=== PATIENT | male | born 1940 | race Caucasian/White ===

== ENCOUNTER 2019-06-18 11:46 | Outpatient (CLI) | payer MEDICARE ==
[2019-06-18 13:05] LABS: Mean Corpuscular HGB CONC 34.1 g/dL (32.0-36.0); Mean Corpuscular Hemoglobin 37.4 pg (27.0-31.0); Mean Platelet Volume 7.3 fL (7.4-10.4); Platelet Count 160 thou/uL (130-400); RBC Distribution Width 12.5 % (11.5-14.5); White Blood Cell (WBC) Count 4.3 thou/uL (4.8-10.8)
[2019-06-18 13:07] LABS: Bacteria/HPF None Seen HPF (None Seen); Bilirubin Negative (Negative); Blood, Urine Negative (Negative); Clarity Clear (Clear); Glucose, Urine (Dipstick) Normal (Negative); Leukocyte Negative Leu/uL (Negative); Nitrite Negative (Negative); Protein, Urine (Dipstick) Negative (Neg-Trace); RBC/HPF 0-3 HPF (0-3); Squamous Epithelial 0-3 HPF (0-3); Urobilinogen Normal mg/dL (Less than 2); WBC/HPF 0-3 HPF (0-3)
[2019-06-18 13:33] LABS: Anion Gap 10 mmol/L (10-20); BUN (Urea Nitrogen) 23 mg/dL (8.4-25.7); Calc. Creatinine Clearance 0 mL/min (70-130); Calcium 9.5 mg/dL (7.8-10.44); Carbon Dioxide 28 mmol/L (23-31); Chloride 105 mmol/L (98-107); Estimated GFR-MDRD 51; Glucose 105 mg/dL (83-110); Potassium 4.3 mmol/L (3.5-5.1); Sodium 139 mmol/L (136-145)
--- NOTE | 2019-06-20 13:39 | EKG ---
Test Reason : Blood Pressure : / mmHG Vent. Rate : 069 BPM Atrial Rate : 069 BPM P-R Int : 162 ms QRS Dur : 088 ms QT Int : 388 ms P-R-T Axes : 056 -15 -07 degrees QTc Int : 415 ms Normal sinus rhythm Minimal voltage criteria for LVH, may be normal variant Borderline ECG When compared with ECG of 08-SEP-2015 13:19, T wave inversion now evident in Inferior leads Confirmed by BEKA BOOKER ([id number]) on 06/20/2019 1:39:04 PM Referred By: EVA Confirmed By:BEKA BOOKER
== END 2019-06-18 11:47 | disposition home or self-care (01) ==
LOC: LABBT 11:46
PROVIDERS: ATTEND Urology
DX: Z01.818 Encounter for other preprocedural examination (principal); N40.1 Benign prostatic hyperplasia with lower urinary tract symptoms
CPT/HCPCS: 80048; 81001; 85027; 87086; 93005; 93010

== ENCOUNTER 2019-06-26 05:53 | Day surgery (SDC) | payer MEDICARE ==
[2019-06-18 11:51] VITALS: BMI 26.4
[2019-06-26] MEDS ORDERED: Levofloxacin 500 mg/D5W 100 ml Premix Bag ONE (06:33)
[2019-06-26] MEDS ORDERED: Midazolam HCl 2 mg/2 ml Vial ONE (06:59)
[2019-06-26] MEDS ORDERED: Fentanyl 100 MCG/2 ML VIAL ONE (06:59)
[2019-06-26] MEDS ORDERED: PROPOFOL 40 ML ONE (07:00)
[2019-06-26] MEDS ORDERED: Ketorolac Tromethamine 30 MG/ML VIAL ONE (08:05)
[2019-06-26] MEDS ORDERED: Oxybutynin 5 MG TAB ONE (08:05)
[2019-06-26] MEDS ORDERED: Phenazopyridine HCl 97.5 MG TABLET ONE (08:05)
[2019-06-26] MEDS ORDERED: PROPOFOL 200 MG/20 ML VIAL ONE (11:36)
--- NOTE | 2019-06-26 13:57 | OP ---
DATE OF PROCEDURE: 06/26/2019 PREOPERATIVE DIAGNOSIS: Enlarged prostate with lower urinary tract symptoms. POSTOPERATIVE DIAGNOSIS: Enlarged prostate with lower urinary tract symptoms. PROCEDURE: UroLift implant. ANESTHESIA: General. COMPLICATIONS: None. BLOOD LOSS: 20 mL. CRITERIA MET:. No active UTI. Conservative management failed and surgical intervention is indicated. IPSS 21/4. Prostate volume, 60 mL. DESCRIPTION OF PROCEDURE: After informed consent, the patient was taken to the operating room, transferred to the table under his own power. Anesthesia was established. A time-out was performed showing the correct patient, site, and procedure. Preoperative antibiotics were administered. He was prepped and draped in the lithotomy position. A 20-[place] cystoscope was inserted into the bladder. The cystostomy bridge was replaced with the UroLift delivery device. The first treatment site was the patient's left side approximately 2 cm distal to the bladder neck. The distal tip of the delivery device was then angled laterally approximately 20 degrees of this position to compress the lateral lobe. The trigger was pulled, thereby deploying a needle containing the implant through the prostate. The needle was retracted, allowing one end of the implant to be delivered to the capsular surface of the prostate. The implant was then tensioned to assure capsular seating and removal of slack monofilament. The device was then angled back toward midline and slowly advanced proximally about 3 to 4 mm until cystoscopic verification of the monofilament being centered in the delivery bay. The urethral end piece was then affixed to the monofilament thereby tailoring the size of the implant. Excess filament was then severed. The delivery device was then readvanced into the bladder. The delivery device was then replaced with the second implant, which was placed on the right side of the bladder neck. Two additional implants the third and fourth were delivered just proximal to the verumontanum, again one on the right and one on the left side of the prostate following a similar technique. Cystoscopy was then repeated, noting an excellent anterior channel and no active bleeding. At this point, the procedure was complete. Total number of implants used, 4. The patient was awoken from anesthesia, transferred back to his hospital bed, and taken to PACU in stable condition, where he will discharge to home upon recovery. IMPLANT LOCATION SUMMARY: 1. Left proximal prostatic urethra. 2. Right proximal prostatic urethra. 3. Left distal prostatic urethra proximal to the verumontanum. 4. Right distal prostatic urethra proximal to the verumontanum. Job ID: [id number] [facility]
== END 2019-06-26 10:00 | disposition home or self-care (01) ==
LOC: SDC 05:53
PROVIDERS: ATTEND Urology
PROC: 0T7D8DZ Dilation of Urethra with Intraluminal Device, Via Natural or Artificial Opening Endoscopic (ICD-10-PCS; principal; 2019-06-26)
DX: N40.1 Benign prostatic hyperplasia with lower urinary tract symptoms (principal); Z79.899 Other long term (current) drug therapy; Z88.0 Allergy status to penicillin
CPT/HCPCS: C1889; J1885; J1956; J2250; J2704; J3010

== ENCOUNTER 2021-06-08 08:48 | Day surgery (SDC) | payer MEDICARE ==
[2021-06-08 08:57] LABS: Prothrombin Time 13.5 sec (12.0-14.7)
[2021-06-08 11:08] VITALS: BMI 26.5
[2021-06-08] MEDS ORDERED: FLU VACC QS2021-22(65YR UP)/PF 240 MCG/0.7 ML SYRINGE IM ONE (18:00)
== END 2021-06-08 11:40 | disposition home or self-care (01) ==
LOC: CT 08:48
PROVIDERS: ATTEND Internal Medicine Hematology & Oncology
PROC: 07DR3ZX Extraction of Iliac Bone Marrow, Percutaneous Approach, Diagnostic (ICD-10-PCS; principal; 2021-06-08)
PROC: 079T3ZX Drainage of Bone Marrow, Percutaneous Approach, Diagnostic (ICD-10-PCS; 2021-06-08)
DX: D61.818 Other pancytopenia (principal); D46.Z Other myelodysplastic syndromes; I10 Essential (primary) hypertension; N40.0 Benign prostatic hyperplasia without lower urinary tract symptoms; E78.00 Pure hypercholesterolemia, unspecified; Z87.891 Personal history of nicotine dependence; Z79.82 Long term (current) use of aspirin; Z79.899 Other long term (current) drug therapy; Z88.0 Allergy status to penicillin
CPT/HCPCS: 20225; 77012; 85610; 85730; 88184; 88237; 88264; 88280

== ENCOUNTER 2023-03-24 13:05 | Outpatient (CLI) | payer MEDICARE ==
[2023-03-24 16:13] LABS: Hemoglobin 10.5 g/dL (13.5-17.5); MDiff Complete? YES; Mean Corpuscular HGB CONC 32.8 g/dL (32.0-36.0); Mean Corpuscular Volume 109.6 fl (81.2-95.1); Mean Platelet Volume 11.1 fl (7.4-10.4); Platelet Count 145 10x3/uL (150-450); RBC Distribution Width 15.7 % (11.5-14.5); Red Blood Cell (RBC) Count 2.92 10x6/uL (4.32-5.72); White Blood Cell (WBC) Count 12.4 10x3/uL (3.5-10.5)
[2023-03-24 16:40] LABS: Anion Gap 17 mmol/L (10-20); BUN (Urea Nitrogen) 15 mg/dL (8.4-25.7); Calc. Creatinine Clearance 0 mL/min (70-130); Calcium 9.1 mg/dL (7.8-10.44); Carbon Dioxide 24 mmol/L (23-31); Chloride 105 mmol/L (98-107); Estimated GFR 86; Glucose 89 mg/dL (83-110); Potassium 3.8 mmol/L (3.5-5.1); Sodium 142 mmol/L (136-145)
[2023-03-24 16:49] LABS: Band 7 % (5-11); Lymphocytes 8 % (21-51); Metamyelocyte 1 % (0-0); Monocytes 2 % (0-10); Neutrophil 82 % (42-75)
[2023-03-24 16:52] LABS: Anisocytosis SLIGHT = 6-15 cells (100X) (0-5/hpf); Macrocytosis MODERATE=16-30 cells (100X) (0-5/hpf)
[2023-03-24 16:53] LABS: Large Platelets SLIGHT (None Seen)
[2023-03-24 16:54] LABS: Platelet Adequacy Comment Appears Decreased
== END 2023-03-24 13:06 | disposition home or self-care (01) ==
LOC: LABBT 13:05
PROVIDERS: ATTEND Orthopaedic Surgery
DX: Z01.818 Encounter for other preprocedural examination (principal); M17.11 Unilateral primary osteoarthritis, right knee
CPT/HCPCS: 80048; 85025; 85610; 87081; 93005; 93010

== ENCOUNTER 2023-03-28 06:24 | Observation (INO) | payer MEDICARE ==
[2023-03-24 13:52] VITALS: BMI 23.0
[2023-03-28] MEDS ORDERED: Sodium Chloride 0.9% 100 ML ONE ×2 (07:15→09:19)
[2023-03-28] MEDS ORDERED: Tranexamic Acid 1,000 MG/10 ML VIAL ONE (07:15)
[2023-03-28] MEDS ORDERED: Vancomycin 1 GM/200 ML (FROZEN) BAG ONE (07:15)
[2023-03-28] MEDS ORDERED: fentaNYL 50 mcg/mL 1 mL Vial ONE ×2 (08:06→13:56)
[2023-03-28] MEDS ORDERED: Bupivacaine PF 0.5% 30 ML VIAL ONE ×2 (08:06→09:19)
[2023-03-28] MEDS ORDERED: Midazolam HCl 2 mg/2 ml Vial ONE (08:06)
[2023-03-28] MEDS ORDERED: fentaNYL 50 mcg/mL 1 mL Vial SLOW IVP PRN (08:44)
[2023-03-28] MEDS ORDERED: traMADol HCl 50 MG TAB PO PRN ×2 (08:45)
[2023-03-28] MEDS ORDERED: Ropivacaine 0.2% 550 ML 550 ML NERVE BLCK SCH (08:45)
[2023-03-28] MEDS ORDERED: Zolpidem Tartrate 5 MG TAB PO PRN ×2 (08:45→09:23)
[2023-03-28] MEDS ORDERED: Ondansetron PF 4 MG/2 ML Vial IVP PRN ×2 (08:45→09:23)
[2023-03-28] MEDS ORDERED: Promethazine HCl 25 MG/ML VIAL IM PRN ×2 (08:45→09:23)
[2023-03-28] MEDS ORDERED: HYDROcodone/Acetaminophen 10/325 mg Tablet PO PRN ×2 (08:45)
[2023-03-28] MEDS ORDERED: fentaNYL PF 100 MCG/2 ML SYRINGE ONE (09:06)
[2023-03-28] MEDS ORDERED: CEFAZOLIN 2 GM VIAL ONE (09:19)
[2023-03-28] MEDS ORDERED: diphenhydrAMINE 25 MG CAP PO PRN (09:23)
[2023-03-28] MEDS ORDERED: Acetaminophen 325 MG TAB PO PRN (09:23)
[2023-03-28] MEDS ORDERED: Propofol 500 MG/50 ML VIAL ONE (09:30)
[2023-03-28] MEDS ORDERED: Ondansetron PF 4 MG/2 ML Vial ONE ×2 (09:41→13:30)
[2023-03-28] MEDS ORDERED: Bupivacaine HCl 0.5%/Epinephrine 1:200,000/PF 30 ml Vial ONE (09:41)
[2023-03-28] MEDS ORDERED: hydrALAZINE 20 MG/ML VIAL ONE (12:38)
[2023-03-28] MEDS ORDERED: Lisinopril 20 MG TAB PO SCH (13:15)
[2023-03-28] MEDS ORDERED: Ketorolac Tromethamine 30 MG/ML VIAL ONE (13:53)
[2023-03-28] MEDS: Ketorolac Tromethamine 30 MG/ML VIAL IVP SCH ×2 (13:53→17:34)
[2023-03-28] MEDS: Sodium Chloride 0.9% 1,000 ML IV SCH ×2 (17:26→18:32)
[2023-03-28] MEDS: CEFAZOLIN 2 GM in Sodium Chloride 0.9% 100 ML IVPB SCH (17:34)
[2023-03-28] MEDS: hydrALAZINE 20 MG/ML VIAL SLOW IVP PRN (19:09)
[2023-03-28] MEDS: Aspirin 81 mg Enteric Coated Tablet PO SCH (21:06)
[2023-03-29] MEDS: Ketorolac Tromethamine 30 MG/ML VIAL IVP SCH ×3 (00:40→11:58)
[2023-03-29] MEDS: CEFAZOLIN 2 GM in Sodium Chloride 0.9% 100 ML IVPB SCH (00:41)
[2023-03-29] MEDS: Sodium Chloride 0.9% 1,000 ML IV SCH (00:42)
[2023-03-29 05:36] LABS: Hematocrit 25.2 % (42.0-52.0); Hemoglobin 8.6 g/dL (14.0-18.0); Mean Corpuscular HGB CONC 34.1 g/dL (32.0-36.0); Mean Corpuscular Hemoglobin 37.4 pg (27.0-31.0); Mean Corpuscular Volume 109.6 fl (78.0-98.0); Mean Platelet Volume 11.9 fL (7.4-10.4); Platelet Count 97 10x3/uL (130-400); White Blood Cell (WBC) Count 9.5 10x3/uL (4.8-10.8)
[2023-03-29] MEDS ORDERED: Ferrous Gluconate 324 MG TAB PO SCH (08:00)
[2023-03-29] MEDS: Aspirin 81 mg Enteric Coated Tablet PO SCH (08:12)
[2023-03-29] MEDS ORDERED: Non-Formulary Item 1 EACH (Multivitamin [Daily Multiple Vitamin] 1 EACH Tablet) PO SCH (09:00)
[2023-03-29] MEDS ORDERED: Cholecalciferol 1,000 UNITS (25 MCG) TAB PO SCH (09:00)
[2023-03-29] MEDS ORDERED: Senokot S 8.6-50 MG TAB PO SCH (09:00)
[2023-03-29] MEDS ORDERED: SENNOSIDES 8.6 MG PO SCH (09:00)
[2023-03-29] MEDS ORDERED: Lisinopril 20 MG TAB PO SCH (09:00)
[2023-03-29] MEDS ORDERED: Multivitamin W/ Minerals 1 TAB PO SCH (09:00)
[2023-03-29] MEDS ORDERED: valACYclovir 500 MG TAB PO SCH (09:00)
[2023-03-29] MEDS ORDERED: Tamsulosin HCl 0.4 MG CAP PO SCH (10:00)
[2023-03-29 12:41] VITALS: TEMP 98.3
[2023-03-29] MEDS: hydrALAZINE 20 MG/ML VIAL SLOW IVP PRN (12:53)
[2023-03-29 14:07] VITALS: BP 147/65
== END 2023-03-29 14:38 | disposition home or self-care (01) ==
LOC: SDC 06:24 → SURG A 17:10
PROVIDERS: ADMIT Orthopaedic Surgery; ATTEND Orthopaedic Surgery
PROC: 0SRC0JZ Replacement of Right Knee Joint with Synthetic Substitute, Open Approach (ICD-10-PCS; principal; 2023-03-28)
DX: M17.11 Unilateral primary osteoarthritis, right knee (principal); I10 Essential (primary) hypertension; E78.5 Hyperlipidemia, unspecified; K21.9 Gastro-esophageal reflux disease without esophagitis; Z87.891 Personal history of nicotine dependence; Z86.16 Personal history of COVID-19; Z88.0 Allergy status to penicillin; Z91.048 Other nonmedicinal substance allergy status; Z79.899 Other long term (current) drug therapy
CPT/HCPCS: 27447; 73560; 85027; 97110 ×2; 97116 ×2; 97530 ×2; A4306; C1776; J0360 ×2; J3010; J3370; 36415; J1885; J2250; J2405; J2704; J2795; J3490; J7050; S0020

== ENCOUNTER 2023-05-19 09:07 | Day surgery (SDC) | payer MEDICARE ==
[~2023-05-19 09:07] MED LIST: Acetaminophen 500 MG TAB PO SCH; diphenhydrAMINE 25 MG CAP PO SCH
[2023-05-19] MEDS ORDERED: diphenhydrAMINE 25 MG CAP ONE (10:29)
[2023-05-19] MEDS ORDERED: Acetaminophen 500 MG TAB ONE (10:29)
[2023-05-19 10:58] VITALS: TEMP 97.6
[2023-05-19] MEDS ORDERED: FLU VACC QS2023(65UP)/MF59C/PF 60 MCG/0.5 ML SYRINGE IM ONE (11:30)
[2023-05-19] MEDS ORDERED: cloNIDine 0.1 MG TAB PO SCH (11:30)
[2023-05-19] MEDS ORDERED: cloNIDine 0.1 MG TAB ONE (11:31)
[2023-05-19 13:37] VITALS: BP 173/71
== END 2023-05-19 14:03 | disposition home or self-care (01) ==
LOC: ONC/OP 09:07
PROVIDERS: ATTEND Internal Medicine Hematology & Oncology
DX: D64.9 Anemia, unspecified (principal); D69.6 Thrombocytopenia, unspecified
CPT/HCPCS: 36430; 86850; 86900; 86901; 86920; P9016

== ENCOUNTER 2023-06-29 10:33 | Day surgery (SDC) | payer MEDICARE ==
[2023-06-29] MEDS ORDERED: diphenhydrAMINE 25 MG CAP PO SCH (11:00)
[2023-06-29] MEDS ORDERED: Acetaminophen 500 MG TAB PO SCH (11:00)
[2023-06-29 15:35] VITALS: TEMP 98.1
[2023-06-29 17:26] VITALS: BP 169/74
== END 2023-06-29 17:27 | disposition home or self-care (01) ==
LOC: ONC/OP 10:33
PROVIDERS: ATTEND Internal Medicine Hematology & Oncology
DX: D64.9 Anemia, unspecified (principal); D69.6 Thrombocytopenia, unspecified
CPT/HCPCS: 36430; 86850; 86900; 86901; 86920; P9016

== ENCOUNTER 2023-07-25 10:05 | Day surgery (SDC) | payer MEDICARE ==
[2023-07-25] MEDS ORDERED: diphenhydrAMINE 25 MG CAP ONE (10:50)
[2023-07-25] MEDS ORDERED: Acetaminophen 500 MG TAB ONE (10:50)
[2023-07-25] MEDS: Acetaminophen 500 MG TAB PO SCH (10:52)
[2023-07-25] MEDS: diphenhydrAMINE 25 MG CAP PO SCH (10:52)
[2023-07-25 13:30] VITALS: TEMP 97.8
[2023-07-25 16:17] VITALS: BP 159/67
== END 2023-07-25 16:27 | disposition home or self-care (01) ==
LOC: ONC/OP 10:05
PROVIDERS: ATTEND Internal Medicine Hematology & Oncology
DX: D64.9 Anemia, unspecified (principal); D69.6 Thrombocytopenia, unspecified
CPT/HCPCS: 36430; 80053; 82248; 83615; 84100; 84550; 86850; 86900; 86901; 86920; P9016; 36415

== ENCOUNTER 2023-08-17 08:58 | Day surgery (SDC) | payer MEDICARE ==
[2023-08-17] MEDS ORDERED: Acetaminophen 500 MG TAB ONE (09:42)
[2023-08-17] MEDS: Acetaminophen 500 MG TAB PO SCH (09:43)
[2023-08-17] MEDS ORDERED: diphenhydrAMINE 25 MG CAP PO SCH (09:45)
[2023-08-17] MEDS ORDERED: cloNIDine 0.1 MG TAB ONE (10:44)
[2023-08-17] MEDS: cloNIDine 0.1 MG TAB PO SCH (10:45)
[2023-08-17 14:49] VITALS: BP 154/70; TEMP 97.9
== END 2023-08-17 14:50 | disposition home or self-care (01) ==
LOC: ONC/OP 08:58
PROVIDERS: ATTEND Internal Medicine Hematology & Oncology
DX: D64.9 Anemia, unspecified (principal)
CPT/HCPCS: 36430; 86850; 86900; 86901; P9016

== ENCOUNTER 2023-11-03 09:00 | Day surgery (SDC) | payer MEDICARE, OTHER ==
[2023-11-03] MEDS ORDERED: diphenhydrAMINE 25 MG CAP PO SCH (09:45)
[2023-11-03] MEDS ORDERED: Acetaminophen 500 MG TAB ONE (09:55)
[2023-11-03] MEDS: Acetaminophen 500 MG TAB PO SCH (09:56)
[2023-11-03 14:59] VITALS: BP 155/63; TEMP 98.1
== END 2023-11-03 15:12 | disposition home or self-care (01) ==
LOC: ONC/OP 09:00
PROVIDERS: ATTEND Internal Medicine Hematology & Oncology
DX: D64.9 Anemia, unspecified (principal); D69.6 Thrombocytopenia, unspecified; Z88.0 Allergy status to penicillin; Z91.048 Other nonmedicinal substance allergy status
CPT/HCPCS: 36430; 86850; 86900; 86901; 86920; P9016

== ENCOUNTER 2023-11-16 09:23 | Day surgery (SDC) | payer MEDICARE ==
[2023-11-16] MEDS ORDERED: diphenhydrAMINE 25 MG CAP PO SCH (09:45)
[2023-11-16] MEDS ORDERED: Acetaminophen 500 MG TAB ONE (10:03)
[2023-11-16] MEDS: Acetaminophen 500 MG TAB PO SCH (10:05)
[2023-11-16 10:53] VITALS: TEMP 97.7
[2023-11-16 13:05] VITALS: BP 149/69
== END 2023-11-16 13:05 | disposition home or self-care (01) ==
LOC: ONC/OP 09:23
PROVIDERS: ATTEND Internal Medicine Hematology & Oncology
DX: D64.9 Anemia, unspecified (principal); D69.6 Thrombocytopenia, unspecified; Z88.0 Allergy status to penicillin; Z91.048 Other nonmedicinal substance allergy status
CPT/HCPCS: 36430; 80048; 86140; 86850; 86900; 86901; 86920; P9016

== ENCOUNTER 2023-11-30 10:29 | Day surgery (SDC) | payer MEDICARE ==
[2023-11-30] MEDS ORDERED: Acetaminophen 500 MG TAB ONE (11:34)
[2023-11-30] MEDS ORDERED: diphenhydrAMINE 25 MG CAP ONE (11:35)
[2023-11-30] MEDS: Acetaminophen 500 MG TAB PO SCH (11:35)
[2023-11-30] MEDS: diphenhydrAMINE 25 MG CAP PO SCH (11:35)
[2023-11-30 14:39] VITALS: BP 146/66; TEMP 97.6
== END 2023-11-30 14:41 | disposition home or self-care (01) ==
LOC: ONC/OP 10:29
PROVIDERS: ATTEND Internal Medicine Hematology & Oncology
DX: D69.6 Thrombocytopenia, unspecified (principal); D64.9 Anemia, unspecified
CPT/HCPCS: 36430; 80048; 86850; 86900; 86901; 86920; G0463; J1642; P9016; 99211

== ENCOUNTER 2023-12-05 10:35 | Day surgery (SDC) | payer MEDICARE ==
[2023-12-05 12:40] VITALS: BP 136/60; TEMP 98.4
== END 2023-12-05 15:00 | disposition home or self-care (01) ==
LOC: ONC/OP 10:35
PROVIDERS: ATTEND Internal Medicine Hematology & Oncology
DX: D64.9 Anemia, unspecified (principal); D69.6 Thrombocytopenia, unspecified; Z91.048 Other nonmedicinal substance allergy status; Z88.0 Allergy status to penicillin
CPT/HCPCS: 36430; 86850; 86900; 86901; 86920; J1642; P9016

== ENCOUNTER 2024-01-27 10:14 | Day surgery (SDC) | payer MEDICARE ==
[2024-01-27] MEDS ORDERED: diphenhydrAMINE 25 MG CAP PO SCH (10:30)
[2024-01-27] MEDS ORDERED: Acetaminophen 500 MG TAB ONE (11:06)
[2024-01-27] MEDS: Acetaminophen 500 MG TAB PO SCH (11:07)
[2024-01-27 16:21] VITALS: BP 145/72; TEMP 98.1
== END 2024-01-27 16:51 | disposition home or self-care (01) ==
LOC: ONC/OP 10:14
PROVIDERS: ATTEND Nurse Practitioner Family
DX: D69.6 Thrombocytopenia, unspecified (principal); Z91.048 Other nonmedicinal substance allergy status; Z88.0 Allergy status to penicillin; C92.00 Acute myeloblastic leukemia, not having achieved remission; D46.Z Other myelodysplastic syndromes
CPT/HCPCS: 36430; 80053; 83735; 85379; 85384; 85610; 86850; 86900; 86901; 86920; P9016; P9035

== ENCOUNTER 2024-02-03 10:14 | Day surgery (SDC) | payer MEDICARE ==
[2024-02-03] MEDS ORDERED: diphenhydrAMINE 25 MG CAP PO SCH (10:45)
[2024-02-03] MEDS ORDERED: Acetaminophen 500 MG TAB ONE (11:07)
[2024-02-03] MEDS: Acetaminophen 500 MG TAB PO SCH (11:08)
[2024-02-03 13:33] VITALS: BP 130/66; TEMP 97.9
== END 2024-02-03 13:55 | disposition home or self-care (01) ==
LOC: ONC/OP 10:14
PROVIDERS: ATTEND Internal Medicine Hematology & Oncology
DX: D64.9 Anemia, unspecified (principal); D69.6 Thrombocytopenia, unspecified
CPT/HCPCS: 36430; 86850; 86900; 86901; 86920; P9016; 80053; 85379; 85384; 85610

== ENCOUNTER 2024-02-22 09:12 | Day surgery (SDC) | payer MEDICARE ==
[2024-02-22] MEDS ORDERED: Acetaminophen 500 MG TAB ONE (10:11)
[2024-02-22] MEDS ORDERED: diphenhydrAMINE 25 MG CAP ONE (10:11)
[2024-02-22] MEDS: diphenhydrAMINE 25 MG CAP PO SCH (10:32)
[2024-02-22] MEDS: Acetaminophen 500 MG TAB PO SCH (10:32)
[2024-02-22 11:53] VITALS: TEMP 98.1
[2024-02-22 12:22] VITALS: BP 147/66
== END 2024-02-22 12:23 | disposition home or self-care (01) ==
LOC: ONC/OP 09:12
PROVIDERS: ATTEND Internal Medicine Hematology & Oncology
DX: D64.9 Anemia, unspecified (principal); D69.6 Thrombocytopenia, unspecified; Z91.040 Latex allergy status; Z88.0 Allergy status to penicillin
CPT/HCPCS: 36430; 86850; 86900; 86901; P9035

== ENCOUNTER 2024-03-16 10:05 | Day surgery (SDC) | payer MEDICARE ==
[2024-03-16] MEDS ORDERED: diphenhydrAMINE 25 MG CAP PO SCH (11:00)
[2024-03-16] MEDS ORDERED: Acetaminophen 500 MG TAB ONE (11:03)
[2024-03-16] MEDS: Acetaminophen 500 MG TAB PO SCH (11:04)
[2024-03-16 11:59] VITALS: BP 154/70; TEMP 98.1
[2024-03-16] MEDS ORDERED: FLU (Fluad Triv) TS24-25 (65UP)/MF59C/PF 45 MCG/0.5 ML Syringe IM ONE (14:00)
== END 2024-03-16 12:03 | disposition home or self-care (01) ==
LOC: ONC/OP 10:05
PROVIDERS: ATTEND Internal Medicine Hematology & Oncology
DX: D64.9 Anemia, unspecified (principal); D69.6 Thrombocytopenia, unspecified; Z91.048 Other nonmedicinal substance allergy status; Z88.0 Allergy status to penicillin
CPT/HCPCS: 36430; 86850; 86900; 86901; P9035

== ENCOUNTER 2024-03-23 09:47 | Day surgery (SDC) | payer MEDICARE ==
[2024-03-23] MEDS ORDERED: diphenhydrAMINE 25 MG CAP ONE (10:56)
[2024-03-23] MEDS ORDERED: Acetaminophen 500 MG TAB ONE (10:56)
[2024-03-23] MEDS: diphenhydrAMINE 25 MG CAP PO SCH (10:57)
[2024-03-23] MEDS: Acetaminophen 500 MG TAB PO SCH (10:57)
[2024-03-23 12:11] VITALS: BP 139/68; TEMP 98.3
== END 2024-03-23 12:12 | disposition home or self-care (01) ==
LOC: ONC/OP 09:47
PROVIDERS: ATTEND Internal Medicine Hematology & Oncology
DX: D64.9 Anemia, unspecified (principal); D69.6 Thrombocytopenia, unspecified; Z88.0 Allergy status to penicillin; Z91.040 Latex allergy status
CPT/HCPCS: 36430; 86850; 86900; 86901; P9035

== ENCOUNTER 2024-03-28 10:28 | Day surgery (SDC) | payer MEDICARE ==
[2024-03-28] MEDS ORDERED: diphenhydrAMINE 25 MG CAP ONE (11:21)
[2024-03-28] MEDS ORDERED: Acetaminophen 500 MG TAB ONE (11:21)
[2024-03-28] MEDS: Acetaminophen 500 MG TAB PO SCH (11:21)
[2024-03-28] MEDS: diphenhydrAMINE 25 MG CAP PO SCH (11:22)
[2024-03-28 12:16] VITALS: BP 145/66; TEMP 97.7
== END 2024-03-28 12:16 | disposition home or self-care (01) ==
LOC: ONC/OP 10:28
PROVIDERS: ATTEND Internal Medicine Hematology & Oncology
DX: D64.9 Anemia, unspecified (principal); D69.6 Thrombocytopenia, unspecified
CPT/HCPCS: 36430; 86850; 86900; 86901; P9035

== ENCOUNTER 2024-04-02 10:54 | Day surgery (SDC) | payer MEDICARE ==
[2024-04-02] MEDS ORDERED: diphenhydrAMINE 25 MG CAP ONE (11:48)
[2024-04-02] MEDS ORDERED: Acetaminophen 500 MG TAB ONE (11:48)
[2024-04-02] MEDS: diphenhydrAMINE 25 MG CAP PO SCH (11:49)
[2024-04-02] MEDS: Acetaminophen 500 MG TAB PO SCH (11:49)
[2024-04-02 13:26] VITALS: BP 168/74; TEMP 98.1
== END 2024-04-02 15:25 | disposition home or self-care (01) ==
LOC: ONC/OP 10:54
PROVIDERS: ATTEND Internal Medicine Hematology & Oncology
DX: D64.9 Anemia, unspecified (principal); D69.6 Thrombocytopenia, unspecified
CPT/HCPCS: 36430; 86850; 86900; 86901; P9035

== ENCOUNTER 2024-04-06 10:56 | Day surgery (SDC) | payer MEDICARE ==
[2024-04-06] MEDS ORDERED: Acetaminophen 500 MG TAB ONE (11:28)
[2024-04-06] MEDS: Acetaminophen 500 MG TAB PO SCH (11:29)
[2024-04-06] MEDS ORDERED: diphenhydrAMINE 25 MG CAP ONE (11:33)
[2024-04-06] MEDS: diphenhydrAMINE 25 MG CAP PO SCH (11:33)
[2024-04-06 13:03] VITALS: TEMP 97.8
[2024-04-06 16:33] VITALS: BP 136/64
== END 2024-04-06 16:01 | disposition home or self-care (01) ==
LOC: ONC/OP 10:56
PROVIDERS: ATTEND Internal Medicine Hematology & Oncology
DX: D64.9 Anemia, unspecified (principal); D69.6 Thrombocytopenia, unspecified; Z91.048 Other nonmedicinal substance allergy status; Z88.0 Allergy status to penicillin
CPT/HCPCS: 36430; 86850; 86900; 86901; 86920; J1642; P9016; P9035

== ENCOUNTER 2024-04-11 10:33 | Day surgery (SDC) | payer MEDICARE ==
[2024-04-11] MEDS ORDERED: diphenhydrAMINE 25 MG CAP ONE (11:43)
[2024-04-11] MEDS ORDERED: Acetaminophen 500 MG TAB ONE (11:43)
[2024-04-11] MEDS: diphenhydrAMINE 25 MG CAP PO SCH (11:44)
[2024-04-11] MEDS: Acetaminophen 500 MG TAB PO SCH (11:44)
[2024-04-11] MEDS ORDERED: FLU (Fluad Triv) TS24-25 (65UP)/MF59C/PF 45 MCG/0.5 ML Syringe IM ONE (14:00)
[2024-04-11 15:08] VITALS: BP 124/61; TEMP 97.7
== END 2024-04-11 15:08 | disposition home or self-care (01) ==
LOC: ONC/OP 10:33
PROVIDERS: ATTEND Internal Medicine Hematology & Oncology
DX: D64.9 Anemia, unspecified (principal); D69.6 Thrombocytopenia, unspecified; Z91.048 Other nonmedicinal substance allergy status; Z88.0 Allergy status to penicillin
CPT/HCPCS: 36430; 86850; 86900; 86901; 86920; P9016; P9035

== ENCOUNTER 2024-04-18 11:12 | Day surgery (SDC) | payer MEDICARE ==
[2024-04-18] MEDS ORDERED: Acetaminophen 500 MG TAB ONE (11:53)
[2024-04-18] MEDS ORDERED: diphenhydrAMINE 25 MG CAP ONE (11:53)
[2024-04-18] MEDS: diphenhydrAMINE 25 MG CAP PO SCH (11:55)
[2024-04-18] MEDS: Acetaminophen 500 MG TAB PO SCH (11:55)
[2024-04-18 16:38] VITALS: TEMP 97.7
[2024-04-18 16:43] VITALS: BP 133/65
== END 2024-04-18 16:41 | disposition home or self-care (01) ==
LOC: ONC/OP 11:12
PROVIDERS: ATTEND Internal Medicine Hematology & Oncology
DX: D64.9 Anemia, unspecified (principal); D69.6 Thrombocytopenia, unspecified; Z91.048 Other nonmedicinal substance allergy status; Z88.0 Allergy status to penicillin
CPT/HCPCS: 36430; 86850; 86900; 86901; 86920; J1642; P9016; P9035

== ENCOUNTER 2024-04-20 09:05 | Emergency (ER) | payer MEDICARE ==
[2024-04-20 09:36] LABS: Bacteria/HPF None Seen HPF (None Seen); CAUTI Indications for Culture Pelvic or flank pain; Squamous Epithelial 0-3 HPF (0-3); WBC/HPF 0-3 HPF (0-3)
[2024-04-20 09:38] LABS: Urine Culture Reflex No No
[2024-04-20 09:44] LABS: Bilirubin Negative (Negative); Blood, Urine 1+ (Negative); Clarity Clear (Clear); Glucose, Urine (Dipstick) Normal (Negative); Ketone, Urine Negative (Negative); Leukocyte Negative Leu/uL (Negative); Nitrite Negative (Negative); Protein, Urine (Dipstick) 10 mg/dL (Neg-Trace); Specific Gravity, Urine 1.014 (1.002-1.036); Urobilinogen Normal mg/dL (Less than 2); pH, Urine 6.5 (5.0-9.0)
[2024-04-20 10:44] LABS: Hematocrit 25.4 % (42.0-52.0); Hemoglobin 8.6 g/dL (14.0-18.0); Mean Corpuscular HGB CONC 33.9 g/dL (32.0-36.0); Mean Corpuscular Hemoglobin 29.1 pg (27.0-31.0); Mean Corpuscular Volume 85.8 fL (78.0-98.0); Mean Platelet Volume 8.8 fL (7.4-10.4); Platelet Count 32 10x3/uL (130-400); RBC Distribution Width 14.4 % (11.5-14.5); Red Blood Cell (RBC) Count 2.96 mill/uL (4.70-6.10)
[2024-04-20 10:49] LABS: Anion Gap 10 mmol/L (10-20); BUN (Urea Nitrogen) 16 mg/dL (8.4-25.7); Calc. Creatinine Clearance 0 mL/min (70-130); Calcium 8.7 mg/dL (7.8-10.44); Carbon Dioxide 23 mmol/L (23-31); Chloride 108 mmol/L (98-107); Estimated GFR 86; Glucose 102 mg/dL (83-110); Lipase 41 U/L (8-78); Potassium 4.2 mmol/L (3.5-5.1); Sodium 137 mmol/L (136-145)
[2024-04-20 11:28] LABS: Band 1 % (5-11); Eosinophils 1 % (0-10); Lymphocytes 29 % (21-51); Neutrophil 2 % (42-75); Platelet Adequacy Comment Significant Decrease; Polychromasia SLIGHT = 2-3 cells HPF (0-2); Reactive Lymphocytes 2 % (0-10)
== END 2024-04-20 11:56 | disposition home or self-care (01) ==
LOC: ERS 09:05
DX: M48.061 Spinal stenosis, lumbar region without neurogenic claudication (principal); N28.1 Cyst of kidney, acquired; I10 Essential (primary) hypertension
CPT/HCPCS: 36415; 74176; 80048; 81001; 83690; 85025

== ENCOUNTER 2024-04-23 09:52 | Day surgery (SDC) | payer MEDICARE ==
[2024-04-23] MEDS ORDERED: Acetaminophen 500 MG TAB ONE (10:30)
[2024-04-23] MEDS ORDERED: diphenhydrAMINE 25 MG CAP PO SCH (10:30)
[2024-04-23] MEDS: Acetaminophen 500 MG TAB PO SCH (10:35)
[2024-04-23 13:21] VITALS: BP 137/65; TEMP 97.7
== END 2024-04-23 13:16 | disposition home or self-care (01) ==
LOC: ONC/OP 09:52
PROVIDERS: ATTEND Internal Medicine Hematology & Oncology
DX: D64.9 Anemia, unspecified (principal); D69.6 Thrombocytopenia, unspecified; Z88.0 Allergy status to penicillin; Z91.048 Other nonmedicinal substance allergy status
CPT/HCPCS: 36430; 86850; 86900; 86901; P9035

== ENCOUNTER 2024-04-25 10:19 | Emergency (ER) | payer MEDICARE ==
[2024-04-25 10:54] LABS: Mean Corpuscular Hemoglobin 28.9 pg (27.0-31.0); Mean Corpuscular Volume 82.6 fL (78.0-98.0); Mean Platelet Volume 10.3 fL (7.4-10.4); Platelet Count 24 10x3/uL (130-400); RBC Distribution Width 14.2 % (11.5-14.5); Red Blood Cell (RBC) Count 2.42 mill/uL (4.70-6.10)
[2024-04-25 11:03] LABS: ALT (SGPT) 19 U/L (8-55); AST (SGOT) 11 U/L (5-34); Albumin 3.2 g/dL (3.4-4.8); Alkaline Phosphatase 78 U/L (40-110); Anion Gap 13 mmol/L (10-20); BUN (Urea Nitrogen) 20 mg/dL (8.4-25.7); Bilirubin, Total 1.1 mg/dL (0.2-1.2); Calc. Creatinine Clearance 0 mL/min (70-130); Calcium 8.6 mg/dL (7.8-10.44); Carbon Dioxide 21 mmol/L (23-31); Chloride 100 mmol/L (98-107); Estimated GFR 72; Globulin 3.4 g/dL (2.4-3.5); Glucose 123 mg/dL (83-110); Potassium 3.9 mmol/L (3.5-5.1); Protein, Total 6.6 g/dL (5.8-8.1); Sodium 130 mmol/L (136-145)
[2024-04-25] MEDS ORDERED: diphenhydrAMINE 25 MG CAP ONE ×2 (11:54→11:57)
[2024-04-25 13:19] LABS: Lymphocytes 25 % (21-51); Monocytes 4 % (0-10); Neutrophil 1 % (42-75); Ovalocytes SLIGHT = 2-5 cells HPF (0-1); Platelet Adequacy Comment Significant Decrease; Polychromasia SLIGHT = 2-3 cells HPF (0-2); Reactive Lymphocytes 1 % (0-10)
== END 2024-04-25 16:38 | disposition home or self-care (01) ==
LOC: ERS 10:19
DX: D61.818 Other pancytopenia (principal); C95.90 Leukemia, unspecified not having achieved remission; I10 Essential (primary) hypertension; E78.5 Hyperlipidemia, unspecified
CPT/HCPCS: 36430; 71045; 80053; 85025; 86850; 86900; 86901; 86920; 93005; P9016; 36415

== ENCOUNTER 2024-04-26 10:25 | Inpatient (IN) | payer MEDICARE, OTHER ==
[2024-04-26 11:19] LABS: Hematocrit 24.8 % (42.0-52.0); Mean Corpuscular HGB CONC 36.3 g/dL (32.0-36.0); Mean Corpuscular Hemoglobin 29.3 pg (27.0-31.0); Mean Corpuscular Volume 80.8 fL (78.0-98.0); Mean Platelet Volume 10.5 fL (7.4-10.4); Platelet Count 13 10x3/uL (130-400); RBC Distribution Width 13.8 % (11.5-14.5); Red Blood Cell (RBC) Count 3.07 mill/uL (4.70-6.10)
[2024-04-26] MEDS ORDERED: Cefepime 2 GM VIAL ONE (11:30)
[2024-04-26] MEDS ORDERED: Sodium Chloride 0.9% 100 ML ONE (11:30)
[2024-04-26 11:33] LABS: ALT (SGPT) 21 U/L (8-55); AST (SGOT) 16 U/L (5-34); Albumin 3.1 g/dL (3.4-4.8); Alkaline Phosphatase 80 U/L (40-110); Anion Gap 13 mmol/L (10-20); BUN (Urea Nitrogen) 20 mg/dL (8.4-25.7); Bilirubin, Total 1.6 mg/dL (0.2-1.2); Calc. Creatinine Clearance 0 mL/min (70-130); Calcium 8.5 mg/dL (7.8-10.44); Carbon Dioxide 20 mmol/L (23-31); Chloride 100 mmol/L (98-107); Estimated GFR 85; Globulin 3.5 g/dL (2.4-3.5); Glucose 124 mg/dL (83-110); Potassium 3.4 mmol/L (3.5-5.1); Protein, Total 6.6 g/dL (5.8-8.1); Sodium 130 mmol/L (136-145)
[2024-04-26] MEDS ORDERED: Iopamidol-370 76% 500 ML MDV (1 ML CHARGE) ONE (11:38)
[2024-04-26 11:43] LABS: Band 1 % (5-11); Burr Cells SLIGHT = 2-5 cells HPF (0-1); Lymphocytes 9 % (21-51); Platelet Adequacy Comment Significant Decrease; Polychromasia SLIGHT = 2-3 cells HPF (0-2); Reactive Lymphocytes 1 % (0-10); Schistocytes SLIGHT = 2-5 cells HPF (0-1); Smudge Cells 4.8 %
[2024-04-26 13:02] LABS: Bacteria/HPF None Seen HPF (None Seen); Bilirubin Negative (Negative); Blood, Urine Trace (Negative); CAUTI Indications for Culture Immunosuppressed; Clarity Clear (Clear); Glucose, Urine (Dipstick) Normal (Negative); Ketone, Urine Negative (Negative); Leukocyte Negative Leu/uL (Negative); Nitrite Negative (Negative); Protein, Urine (Dipstick) 30 mg/dL (Neg-Trace); RBC/HPF 0-3 HPF (0-3); Specific Gravity, Urine 1.015 (1.002-1.036); Squamous Epithelial 0-3 HPF (0-3); Urobilinogen Normal mg/dL (Less than 2); WBC/HPF 0-3 HPF (0-3); pH, Urine 5.5 (5.0-9.0)
[2024-04-26 13:03] LABS: Urine Culture Reflex No No; Urine Culture Reflex Yes Yes
[2024-04-26] MEDS ORDERED: Senokot 8.6 MG TAB PO PRN (14:19)
[2024-04-26 15:36] VITALS: BMI 20.8
[2024-04-26] MEDS: Acetaminophen 325 MG TAB PO PRN (15:54)
[2024-04-26] MEDS: valACYclovir 500 MG TAB PO SCH (15:55)
[2024-04-26] MEDS ORDERED: POSACONAZOLE PO SCH (21:00)
[2024-04-26] MEDS: Cefepime 2 GM in Sodium Chloride 0.9% 100 ML IVPB SCH (21:15)
[2024-04-27] MEDS: HYDROcodone/Acetaminophen 5/325 mg Tablet PO PRN (03:34)
[2024-04-27 05:13] LABS: Hemoglobin 7.9 g/dL (14.0-18.0); Mean Corpuscular HGB CONC 35.9 g/dL (32.0-36.0); Mean Corpuscular Hemoglobin 29.4 pg (27.0-31.0); Mean Corpuscular Volume 81.8 fL (78.0-98.0); Mean Platelet Volume 8.8 fL (7.4-10.4); Platelet Count 38 10x3/uL (130-400); RBC Distribution Width 13.9 % (11.5-14.5); Red Blood Cell (RBC) Count 2.69 mill/uL (4.70-6.10)
[2024-04-27 05:22] LABS: ALT (SGPT) 18 U/L (8-55); AST (SGOT) 18 U/L (5-34); Albumin 2.7 g/dL (3.4-4.8); Alkaline Phosphatase 67 U/L (40-110); Anion Gap 12 mmol/L (10-20); BUN (Urea Nitrogen) 19 mg/dL (8.4-25.7); Bilirubin, Total 1.3 mg/dL (0.2-1.2); Calc. Creatinine Clearance 69 mL/min (70-130); Calcium 8.1 mg/dL (7.8-10.44); Carbon Dioxide 21 mmol/L (23-31); Chloride 101 mmol/L (98-107); Estimated GFR 87; Globulin 3.1 g/dL (2.4-3.5); Glucose 129 mg/dL (83-110); Potassium 2.9 mmol/L (3.5-5.1); Protein, Total 5.8 g/dL (5.8-8.1); Sodium 131 mmol/L (136-145)
[2024-04-27 05:44] LABS: Hypochromia SLIGHT = 6-15 cells HPF (0-5); Lymphocytes 15 % (21-51); Macrocytosis SLIGHT = 6-15 cells HPF (0-5); Neutrophil 1 % (42-75); Platelet Adequacy Comment Platelets Decreased; Polychromasia SLIGHT = 2-3 cells HPF (0-2)
[2024-04-27] MEDS: Cholecalciferol 1,000 UNITS (25 MCG) TAB PO SCH (09:02)
[2024-04-27] MEDS: Tamsulosin HCl 0.4 MG CAP PO SCH (09:02)
[2024-04-27] MEDS: Potassium Chloride 20 MEQ TAB PO SCH ×2 (14:41→20:16)
[2024-04-27] MEDS: Vancomycin (BATCH) 1.75 GM in Premix 1 BAG IVPB SCH (16:16)
[2024-04-27] MEDS: Vancomycin 1 GM in Sodium Chloride 0.9% 250 ML 250 ML IVPB SCH (17:35)
[2024-04-27] MEDS ORDERED: Non-Formulary Item 1 EACH (Posaconazole 100 MG Tab) PO SCH (21:00)
[2024-04-27] MEDS: Vancomycin HCl 750 MG in Sodium Chloride 0.9% 250 ML 250 ML IVPB SCH (23:52)
[2024-04-28 04:58] LABS: Hematocrit 23.7 % (42.0-52.0); Hemoglobin 8.3 g/dL (14.0-18.0); Mean Corpuscular Hemoglobin 28.8 pg (27.0-31.0); Mean Corpuscular Volume 82.3 fL (78.0-98.0); Mean Platelet Volume 9.2 fL (7.4-10.4); Platelet Count 22 10x3/uL (130-400); RBC Distribution Width 13.9 % (11.5-14.5); Red Blood Cell (RBC) Count 2.88 mill/uL (4.70-6.10)
[2024-04-28 05:04] LABS: Vancomycin, Random 18.9 ug/mL (See Comment)
[2024-04-28 05:08] LABS: ALT (SGPT) 17 U/L (8-55); AST (SGOT) 14 U/L (5-34); Albumin 2.6 g/dL (3.4-4.8); Alkaline Phosphatase 70 U/L (40-110); Anion Gap 12 mmol/L (10-20); BUN (Urea Nitrogen) 18 mg/dL (8.4-25.7); Bilirubin, Total 1.4 mg/dL (0.2-1.2); Calc. Creatinine Clearance 80 mL/min (70-130); Carbon Dioxide 20 mmol/L (23-31); Chloride 101 mmol/L (98-107); Estimated GFR 91; Globulin 3.4 g/dL (2.4-3.5); Glucose 135 mg/dL (83-110); Potassium 3.3 mmol/L (3.5-5.1); Sodium 130 mmol/L (136-145)
[2024-04-28 05:29] LABS: Band 1 % (5-11); Blast 1 % (0-0); Hypochromia SLIGHT = 6-15 cells HPF (0-5); Lymphocytes 11 % (21-51); Neutrophil 4 % (42-75); Platelet Adequacy Comment Platelets Decreased; Reactive Lymphocytes 5 % (0-10)
[2024-04-28] MEDS ORDERED: Potassium Chloride 20 MEQ TAB PO SCH (08:00)
[2024-04-28] MEDS: Multivitamin W/ Minerals 1 TAB PO SCH (09:20)
[2024-04-28] MEDS: Pantoprazole DR 40 MG TAB PO SCH (09:20)
[2024-04-28] MEDS: NIFEdipine XL 30 MG ER.TAB PO SCH (09:20)
[2024-04-28] MEDS: Lisinopril 20 MG TAB PO SCH (09:20)
[2024-04-28] MEDS: Potassium Chloride 20 MEQ TAB PO SCH (10:23)
[2024-04-28] MEDS: Vancomycin 1 GM in Premix 1 BAG IVPB SCH (12:44)
[2024-04-28] MEDS: Gentamicin Sulfate 120 MG in Premix 1 BAG IVPB SCH (18:19)
[2024-04-29 04:34] LABS: Hematocrit 22.3 % (42.0-52.0); Hemoglobin 7.9 g/dL (14.0-18.0); Mean Corpuscular HGB CONC 35.4 g/dL (32.0-36.0); Mean Corpuscular Hemoglobin 28.9 pg (27.0-31.0); Mean Corpuscular Volume 81.7 fL (78.0-98.0); Mean Platelet Volume 9.4 fL (7.4-10.4); Platelet Count 16 10x3/uL (130-400); RBC Distribution Width 14.1 % (11.5-14.5); Red Blood Cell (RBC) Count 2.73 mill/uL (4.70-6.10)
[2024-04-29 04:56] LABS: ALT (SGPT) 19 U/L (8-55); AST (SGOT) 16 U/L (5-34); Albumin 2.6 g/dL (3.4-4.8); Alkaline Phosphatase 71 U/L (40-110); Anion Gap 12 mmol/L (10-20); BUN (Urea Nitrogen) 22 mg/dL (8.4-25.7); Bilirubin, Total 1.1 mg/dL (0.2-1.2); Calc. Creatinine Clearance 80 mL/min (70-130); Calcium 8.2 mg/dL (7.8-10.44); Carbon Dioxide 20 mmol/L (23-31); Chloride 100 mmol/L (98-107); Estimated GFR 91; Globulin 3.4 g/dL (2.4-3.5); Glucose 142 mg/dL (83-110); Potassium 3.4 mmol/L (3.5-5.1); Sodium 129 mmol/L (136-145)
[2024-04-29 05:04] LABS: Band 1 % (5-11); Blast 67 % (0-0); Elliptocytes SLIGHT = 2-5 cells HPF (0-1); Lymphocytes 22 % (21-51); Neutrophil 3 % (42-75); Platelet Adequacy Comment Platelets Decreased; Polychromasia SLIGHT = 2-3 cells HPF (0-2); Reactive Lymphocytes 7 % (0-10); Spherocytes MODERATE= 6-15 cells HPF (None Seen)
[2024-04-29 09:41] LABS: Gentamicin, Random 0.7 ug/mL (See Comment)
[2024-04-29 22:42] LABS: Hematocrit 19.7 % (42.0-52.0); Hemoglobin 7.1 g/dL (14.0-18.0); Mean Corpuscular Hemoglobin 29.6 pg (27.0-31.0); Mean Corpuscular Volume 82.1 fL (78.0-98.0); Mean Platelet Volume 9.2 fL (7.4-10.4); Platelet Count 11 10x3/uL (130-400); RBC Distribution Width 14.1 % (11.5-14.5)
[2024-04-29 22:52] LABS: ALT (SGPT) 17 U/L (8-55); AST (SGOT) 15 U/L (5-34); Albumin 2.4 g/dL (3.4-4.8); Alkaline Phosphatase 71 U/L (40-110); Anion Gap 12 mmol/L (10-20); BUN (Urea Nitrogen) 26 mg/dL (8.4-25.7); Bilirubin, Total 1.1 mg/dL (0.2-1.2); Calc. Creatinine Clearance 72 mL/min (70-130); Carbon Dioxide 18 mmol/L (23-31); Chloride 102 mmol/L (98-107); Estimated GFR 88; Globulin 3.4 g/dL (2.4-3.5); Glucose 163 mg/dL (83-110); Magnesium 1.9 mg/dL (1.6-2.6); Potassium 3.4 mmol/L (3.5-5.1); Protein, Total 5.8 g/dL (5.8-8.1); Sodium 129 mmol/L (136-145)
[2024-04-29 23:12] LABS: Blast 78 % (0-0); Hypochromia SLIGHT = 6-15 cells HPF (0-5); Lymphocytes 21 % (21-51); Neutrophil 1 % (42-75); Platelet Adequacy Comment Significant Decrease; Polychromasia SLIGHT = 2-3 cells HPF (0-2)
[2024-04-29] MEDS ORDERED: Electrolyte Replacement Protocol FS SCH (23:15)
[2024-04-30] MEDS: Magnesium 2 GM/50 ML(in water) 2 GM in Premix 1 BAG IVPB SCH (00:34)
[2024-04-30] MEDS: Potassium Chloride 20 MEQ TAB PO SCH ×2 (00:37→12:19)
[2024-04-30 05:21] LABS: Hematocrit 19.9 % (42.0-52.0); Hemoglobin 7.1 g/dL (14.0-18.0); Mean Corpuscular HGB CONC 35.7 g/dL (32.0-36.0); Mean Corpuscular Hemoglobin 29.3 pg (27.0-31.0); Mean Corpuscular Volume 82.2 fL (78.0-98.0); Mean Platelet Volume 8.7 fL (7.4-10.4); Platelet Count 33 10x3/uL (130-400); RBC Distribution Width 14.2 % (11.5-14.5); Red Blood Cell (RBC) Count 2.42 mill/uL (4.70-6.10)
[2024-04-30 05:50] LABS: Vancomycin, Random 23.5 ug/mL (See Comment)
[2024-04-30 05:52] LABS: ALT (SGPT) 22 U/L (8-55); AST (SGOT) 22 U/L (5-34); Albumin 2.5 g/dL (3.4-4.8); Alkaline Phosphatase 76 U/L (40-110); Anion Gap 11 mmol/L (10-20); BUN (Urea Nitrogen) 26 mg/dL (8.4-25.7); Calc. Creatinine Clearance 72 mL/min (70-130); Calcium 8.2 mg/dL (7.8-10.44); Carbon Dioxide 20 mmol/L (23-31); Chloride 101 mmol/L (98-107); Estimated GFR 88; Globulin 3.6 g/dL (2.4-3.5); Glucose 134 mg/dL (83-110); Potassium 3.4 mmol/L (3.5-5.1); Protein, Total 6.1 g/dL (5.8-8.1); Sodium 129 mmol/L (136-145)
[2024-04-30 06:06] LABS: Anisocytosis SLIGHT = 6-15 cells HPF (0-5); Band 4 % (5-11); Elliptocytes SLIGHT = 2-5 cells HPF (0-1); Hypochromia SLIGHT = 6-15 cells HPF (0-5); Lymphocytes 37 % (21-51); Monocytes 1 % (0-10); Platelet Adequacy Comment Platelets Decreased; Polychromasia SLIGHT = 2-3 cells HPF (0-2); Reactive Lymphocytes 1 % (0-10)
[2024-04-30] MEDS ORDERED: Potassium Chloride 20 MEQ TAB PO SCH (12:00)
[2024-05-01 06:47] LABS: Hematocrit 23.8 % (42.0-52.0); Hemoglobin 8.5 g/dL (14.0-18.0); Mean Corpuscular HGB CONC 35.7 g/dL (32.0-36.0); Mean Corpuscular Hemoglobin 29.4 pg (27.0-31.0); Mean Corpuscular Volume 82.4 fL (78.0-98.0); Platelet Count 33 10x3/uL (130-400); RBC Distribution Width 14.2 % (11.5-14.5); Red Blood Cell (RBC) Count 2.89 mill/uL (4.70-6.10)
[2024-05-01 06:49] LABS: ALT (SGPT) 33 U/L (8-55); AST (SGOT) 31 U/L (5-34); Albumin 2.5 g/dL (3.4-4.8); Alkaline Phosphatase 82 U/L (40-110); Anion Gap 14 mmol/L (10-20); BUN (Urea Nitrogen) 21 mg/dL (8.4-25.7); Bilirubin, Total 1.5 mg/dL (0.2-1.2); Calc. Creatinine Clearance 73 mL/min (70-130); Calcium 8.3 mg/dL (7.8-10.44); Carbon Dioxide 21 mmol/L (23-31); Chloride 105 mmol/L (98-107); Estimated GFR 89; Globulin 3.8 g/dL (2.4-3.5); Glucose 129 mg/dL (83-110); Potassium 3.7 mmol/L (3.5-5.1); Protein, Total 6.3 g/dL (5.8-8.1); Sodium 136 mmol/L (136-145)
[2024-05-01 07:42] LABS: Band 3 % (5-11); Lymphocytes 21 % (21-51); Monocytes 1 % (0-10); Neutrophil 6 % (42-75); Platelet Adequacy Comment Platelets Decreased; Polychromasia SLIGHT = 2-3 cells HPF (0-2); Reactive Lymphocytes 3 % (0-10); Schistocytes SLIGHT = 2-5 cells HPF (0-1)
[2024-05-01] MEDS ORDERED: Meropenem 1 GM in Sodium Chloride 0.9% 100 ML IVPB SCH (14:00)
[2024-05-01] MEDS ORDERED: Electrolyte Replacement Protocol FS PRN (14:00)
[2024-05-01] MEDS: Meropenem 1 GM in Sodium Chloride 0.9% 100 ML IVPB SCH ×2 (14:01→21:02)
[2024-05-01 20:02] VITALS: BP 148/64; TEMP 98
[2024-05-02] MEDS ORDERED: Meropenem 1 GM VIAL ONE ×2 (15:48→21:00)
[2024-05-02] MEDS ORDERED: Potassium Chloride 20 MEQ TAB ONE (20:31)
== END 2024-05-03 15:50 | disposition hospice, home (50) | DRG 808 ==
LOC: ERS 10:25 → SUATTDRO 10:25 → MSONC 14:54
PROVIDERS: ADMIT Internal Medicine; ATTEND Internal Medicine
PROC: 30233R1 Transfusion of Nonautologous Platelets into Peripheral Vein, Percutaneous Approach (ICD-10-PCS; 2024-04-26)
PROC: 30233N1 Transfusion of Nonautologous Red Blood Cells into Peripheral Vein, Percutaneous Approach (ICD-10-PCS; principal; 2024-04-30)
DX: D70.9 Neutropenia, unspecified (principal); A41.59 Other Gram-negative sepsis; C92.00 Acute myeloblastic leukemia, not having achieved remission; E87.1 Hypo-osmolality and hyponatremia; L03.211 Cellulitis of face; R50.81 Fever presenting with conditions classified elsewhere; Z51.5 Encounter for palliative care; N40.0 Benign prostatic hyperplasia without lower urinary tract symptoms; I10 Essential (primary) hypertension; E78.5 Hyperlipidemia, unspecified; D61.818 Other pancytopenia; E87.6 Hypokalemia; H10.9 Unspecified conjunctivitis; Z88.0 Allergy status to penicillin; Z79.2 Long term (current) use of antibiotics; Z79.899 Other long term (current) drug therapy
CPT/HCPCS: 36415; 36416; 36430; 70487; 71045; 72193; 80053; 80170; 80202; 81001; 83605; 83735; 85025; 85060; 86850; 86900; 86901; 87040; 87077; 87086; 87149; 87186; 87428; 93005; 93306; 96365; 97139; J0692; J1580; J2185; J3370; J3370-JW; J3475; J7050; P9016; P9035; Q9967